=== PATIENT | female | born 1950 | race Caucasian/White ===

== ENCOUNTER 2022-02-06 15:21 | Outpatient (CLI) | payer MEDICARE, SELFPAY ==
[2022-02-06 16:15] LABS: Albumin* 4.4 g/dL (3.3-5.0); Chloride* 99 mmol/L (96-114)
[2022-02-06 16:16] LABS: Potassium* 3.9 mmol/L (3.6-5.1); Sodium* 141 mmol/L (135-149)
[2022-02-06 16:18] LABS: Bilirubin Total* 0.4 mg/dL (0.1-1.5); Carbon Dioxide* 33 mmol/L (20-32); Creatinine* 0.7 mg/dL (0.5-1.5); Estimated Glomerular Filt Rate 94 ml/min
[2022-02-06 16:19] LABS: Alanine Aminotransferase* 27 U/L (4-35); Alkaline Phosphatase* 77 U/L (40-150); Aspartate Amino Transferase* 38 U/L (12-35); Blood Urea Nitrogen* 14 mg/dL (7-30); Calcium* 9.1 mg/dL (8.4-10.6); Glucose* 129 mg/dL (60-115); Total Protein* 7.1 g/dL (6.0-8.3)
[2022-02-09 22:53] LABS: Prolactin 12.2 ng/mL (2.8-29.2)
== END 2022-02-06 15:22 | disposition home or self-care (01) ==
LOC: LAB 15:26
PROVIDERS: PCP Internal Medicine; Visit Provider Internal Medicine
DX: G43.711 Chronic migraine without aura, intractable, with status migrainosus (principal); E07.9 Disorder of thyroid, unspecified
CPT/HCPCS: 36415; 80053; 84146; 84443

== ENCOUNTER 2022-11-10 07:44 | Outpatient (CLI) | payer MEDICARE, SELFPAY | END 2022-11-10 07:45 | disposition home or self-care (01) | LOC: NFLDREF 11-11 08:48 | PROVIDERS: PCP Internal Medicine; Referring Provider Internal Medicine; Visit Provider Internal Medicine | DX: E78.5 Hyperlipidemia, unspecified (principal); M85.80 Other specified disorders of bone density and structure, unspecified site | CPT/HCPCS: 80061; 82306 ==

== ENCOUNTER 2022-12-15 08:32 | Outpatient (CLI) | payer MEDICARE, SELFPAY ==
--- NOTE | 2022-12-15 08:45 | CRLHL7_ITS ---
For Patients: As a result of the Cures Act, medical imaging exams and procedure reports are released immediately into your electronic medical record. You may view this report before your referring provider. If you have questions, please contact your health care provider. INDICATION: 72 year-old female. Follow-up a right-sided thyroid lobe nodule. TECHNIQUE: Directed thyroid ultrasound. COMPARISON: December 16, 2020. FINDINGS: The right thyroid lobe measures 5.1 x 1.5 x 2.1 cm. The left thyroid lobe measures 4.2 x 0.9 x 1.4 cm. The isthmus measures 0.2 cm. No left-sided thyroid lobe nodules. Stable solid largely isoechoic nodule in the mid right thyroid gland measuring 3.0 x 1.5 x 1.9 cm previously 3.1 x 1.9 x 1.6 cm. IMPRESSION: Stable right-sided thyroid lobe nodule. Dictated by Shay Kline MD @ 12/17/2022 8:36:45 AM (Electronically Signed)
== END 2022-12-15 08:33 | disposition home or self-care (01) ==
PROVIDERS: PCP Internal Medicine; Visit Provider Surgery
DX: E04.1 Nontoxic single thyroid nodule (principal)
CPT/HCPCS: 76536

== ENCOUNTER 2023-03-15 09:49 | Outpatient (CLI) | payer MEDICARE, SELFPAY | END 2023-03-15 09:50 | disposition home or self-care (01) | LOC: NFLDREF 03-19 15:25 | PROVIDERS: PCP Internal Medicine; Referring Provider Internal Medicine; Visit Provider Family Medicine | DX: R30.0 Dysuria (principal); N39.0 Urinary tract infection, site not specified | CPT/HCPCS: 87086; 87186 ==

== ENCOUNTER 2023-06-29 11:00 | Outpatient (RCR) | payer MEDICARE, SELFPAY ==
--- NOTE | 2022-12-22 11:21 | URNOTE ---
Request received for authorization for [employer] ([id number]). Prior authorization is not required as services are based on medical necessity and follow Medicare guidelines.
[2022-12-31 11:00] VITALS: BP 114/69; PULSE 60; RESP 16; TEMP 36.6; O2SAT 96
[2022-12-31] MEDS: [UNRECOGNIZED DRUG - OTHER] IVPB (11:36)
[2022-12-31] MEDS: EPTINEZUMAB JJMR IVPB (11:36)
[2022-12-31] MEDS: TUBING PRIMARY IVPB (11:36)
--- NOTE | 2022-12-31 11:54 | ONC.NURNOTE ---
Patient did not want to make a 3 month appointment today. Patient plans to update her MD in [place] and will decide if the current dose is working of if a new order for a double dose is needed and will call back to schedule.
[2022-12-31] MEDS: 0.9 % SODIUM CHLORIDE 250 ml IV (11:55)
[2022-12-31] MEDS: SODIUM CHLORIDE 0.9 % (FLUSH) 10 ML SYRINGE IVF (11:55)
[2022-12-31 12:13] VITALS: BP 103/63; PULSE 63; RESP 16; TEMP 37.2; O2SAT 99
--- NOTE | 2023-03-16 13:58 | ONC.NURNOTE ---
Dx: Chronic migraine without aura
[2023-03-26 08:15] VITALS: BP 118/78; PULSE 67; RESP 16; TEMP 36.1; O2SAT 96
[2023-03-26] MEDS: TUBING PRIMARY IVPB (09:14)
[2023-03-26] MEDS: EPTINEZUMAB JJMR IVPB (09:14)
[2023-03-26] MEDS: 0.9 % SODIUM CHLORIDE 250 ml IV (09:14)
[2023-03-26] MEDS: [UNRECOGNIZED DRUG - OTHER] IVPB (09:14)
[2023-03-26] MEDS: SODIUM CHLORIDE 0.9 % (FLUSH) 10 ML SYRINGE IVF (09:15)
--- NOTE | 2023-03-26 11:56 | ONC.NURNOTE ---
only received 100mg iv VYEPTI today. pharmacy will be receiving another 200mg wednesday. I will call pt when it arrives. pt cried stressed about things.
[2023-03-29] MEDS: 0.9 % SODIUM CHLORIDE 250 ml IV (14:05)
[2023-03-29 14:39] VITALS: BP 131/80; PULSE 65; RESP 16; TEMP 36.4; O2SAT 97
[2023-06-29 11:07] VITALS: BP 112/64; PULSE 73; RESP 16; TEMP 36.6; O2SAT 93
[2023-06-29] MEDS: 0.9 % SODIUM CHLORIDE 250 ml IV (11:33)
[2023-06-29] MEDS: SODIUM CHLORIDE 0.9 % (FLUSH) 10 ML SYRINGE IVF (11:33)
--- NOTE | 2023-06-29 12:15 | ONC.NURNOTE ---
Patient here for deshaun, she notes that she has a follow up appointment with her provider in three weeks. She would like to hold off on scheduling another infusion until she has this meeting. Treatment flowsheet sent to provider for this visit.
== END 2023-06-29 23:59 | disposition home or self-care (01) ==
LOC: CCIC 11:00
PROVIDERS: PCP Internal Medicine; Referring Provider Internal Medicine; Visit Provider Clinical Nurse Specialist
DX: G43.909 Migraine, unspecified, not intractable, without status migrainosus (principal)
CPT/HCPCS: 96365; J3032; J7050

== ENCOUNTER 2023-11-22 15:00 | Outpatient (RCR) | payer MEDICARE, SELFPAY ==
--- NOTE | 2023-07-05 16:37 | PT.OPEX ---
PT [place] Outpatient Eval PT [facility] Outpatient Eval Start: 06/28/23 15:42 Freq: Status: Active Protocol: Document 07/05/23 12:07 MLS (Rec: 07/05/23 16:36 MLS [id number]) E-signed By Sariah Martinez DPT Physical Therapy Outpatient Evaluation Insurance Information Recert Due Date 10/02/23 Insurance Name Medicare [employer],[facility] Medical Diagnosis R26.9 unspecified abnormalities of gait and mobility R26.89 other abnormalities of gait and mobility Treating Diagnosis LE strengthening Balance training Referring MD Hanane Dueñas MD Subjective Subjective Patient is a 73 year old female who presents to physical therapy with signs and symptoms consistent with balance problems. She states that she has had a few falls in the last year. She states that she has had 3-5 falls in the last year. She states that three of them were ice related, one was tripping over a baby gate at home, and the last she tripped on the sidewalk. She reports that she hit her head with a couple of them but no lasting effects. She reports that her current exercise program includes walking 30-45 min walking 5x/week. Significant past medical history includes right hip replacement 2014, right shoulder replacement 2020, and chronic migraines ( 15 or more days per month). She reports she has some on and off vertigo as well. She states that they have been worse the last year. She does see a headache specialist in [place], with virtual appointments every 6 weeks. Patient would like to have better core strength through attending physical therapy sessions. 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 69 years 8.1 (7.1 ? 9.0) / 70 ? 79 years 9.2 (8.2 ? 10.2) / 80 ? 99 years 11.3 ( 10.0 ? 12.7) LLE MMT: Hip flexion: R 4/5 L 4/5 Hip abduction: R 4-/5 L 4-/5 Hip extension: R 4/5 L 4/5 Knee flexion: R 4/5 L 4/5 Knee extension: R 4/5 L 4/5 TX: Access Code: [email or web address] URL: [email or web address] Date: 07/05/2023 Prepared by: Sariah Martinez Exercises - Mini Squat with Counter Support - 1 x daily - 7 x weekly - 3 sets - 10 reps - Standing March with Counter Support - 1 x daily - 7 x weekly - 3 sets - 10 reps - Standing Hip Extension with Counter Support - 1 x daily - 7 x weekly - 3 sets - 10 reps - Standing Hip Abduction with Counter Support - 1 x daily - 7 x weekly - 3 sets - 10 reps - Heel Raises with Counter Support - 1 x daily - 7 x weekly - 3 sets - 10 reps Functional Test Performed & Score 52/56 Lawrence Balance Assessment Assessment/Impression Pt is a 73 year old female who presents with concerns of balance problems. Patient also has notable objective findings including recent falls and decreased strength which are also likely contributing to the problem. Patient is a good candidate for skilled therapy to target deficits described above. Skilled PT intervention is necessary for use of therapeutic exercise manual therapy, neuromuscular re- education, gait training, and therapeutic activity. Functional impairments include difficulty with: standing, walking and ADLS. See appropriate sections of PT eval for complete list of goals and POC. D/C plan and criteria is for pt to achieve the goals as listed below or until max rehab potential is met. Pt was agreeable with plan of care and goals established. Primary Functional Limitations standing walking exercising ADLs Plan of Care Rehabilitation Potential Good Physical Therapy Goals Within 10-12 weeks: 1.Pt will demonstrate independence in performance of home exercise program with the use of video and/or handouts in order to optimize functional mobility and reduce risk for re-injury. 2.Pt will demonstrate consistent HEP compliance to ensure progress in reaching established goals during course of care. 3.Patient will be able to grocery shop for 30 minutes without a loss of balance. 4.Patient will report pain levels <2/10 with all activities in order to improve functional mobility at home, work and during functional leisure activities. 5.Patient will be able to walk up to one mile. 6.Patient will be able to bend and lift household items from the floor to shoulder height to perform ADLs without pain. 7.Pt will be able to ascend/ descend 1 flight of stairs in order to perform ADLs pain free. 8.Pt will exhibit 4 pt improvement in Lawrence Balance Outcome measure to demonstrate functional improvement and progress towards goals Coordination/Communication With Referral Source Treatment Plan/Direct Interventions Neuromuscular Re-ed, Therapeutic Activities, Therapeutic Exercises Patient Will Be Discharged From Therapy Independently Progressing Evaluation Billing Untimed Code Treatment Minutes 30 Complexity Low Certification Information Physician Comment/Change : Physician NPI Number #
--- NOTE | 2023-10-06 16:46 | PT.OPDNX ---
PT [place] Outpatient Daily Note PT [facility] Outpatient Daily Note Start: 06/28/23 15:42 Freq: Status: Active Protocol: Document 10/06/23 11:49 MLS (Rec: 10/06/23 16:46 MLS [id number]) E-signed By Sariah Martinez DPT PT [facility] Daily Progress Note Visit Information Note Type Daily Note Visit Number 10 Insurance Information Recert Due Date 10/02/23 Insurance Name Medicare B,[facility] Medical Diagnosis R26.9 unspecified abnormalities of gait and mobility R26.89 other abnormalities of gait and mobility Treating Diagnosis LE strengthening Balance training Referring MD Hanane Dueñas MD Subjective Subjective Patient is a 73 year old female who presents to physical therapy with signs and symptoms consistent with balance problems. She reports that she is feeling okay. She states that she feels a headache coming. Pain Comments Today: (headache) 2/10 on a 0-10 pain scale with 10 = extreme pain At its worst: 7/10 At its best: 0/10 Precautions Treatment Precautions/Contraindications migraines - 15 or more days per month Objective Other/Pertinent Objective GAIT/FUNCTIONAL MOBILITY Ambulates without an assistive device, no antalgic gait noted Romberg eyes open:20 sec with perturbation Romberg eyes closes: 15 sec 30 second sts: 10 5 time sts: 16 sec Age Bracket Time (sec) 60-69 yo 11.4 / 70-79 yo 12.6 / 80- 89 yo 14.8 Single leg stance- 5 seconds on each leg TUG 8 sec 13.5 seconds is cut off for norm 60 ? 69 years 8.1 (7.1 ? 9.0) / 70 ? 79 years 9.2 (8.2 ? 10.2) / 80 ? 99 years 11.3 ( 10.0 ? 12.7) LLE MMT: Hip flexion: R 4/5 L 4/5 Hip abduction: R 4-/5 L 4-/5 Hip extension: R 4/5 L 4/5 Knee flexion: R 4/5 L 4/5 Knee extension: R 4/5 L 4/5 Functional Test Performed & Score 52/56 Lawrence Balance Patient Instructed in Risks/Benefits Yes Therapeutic Exercise Therapeutic Exercise Minutes (minutes) 30 Therapeutic Exercise: To Restore Added 1.5# weights Functional Status SLR 3x10 B Heel slides 3x10 B SAQ 3x10 B, 5 sec hold Bridge 3x10, 5 sec hold w adduction squeeze LAQ 2 x10 Sidelying abduction 2x10 B Sidelying clamshell 2x10 B Not today: Counter march 3x10 Counter hip extension 3x10 Counter hip abduction 3x10 Counter HS curl 3 x 10 Access Code: [email or web address] URL: [email or web address] Date: 07/05/2023 Prepared by: Sariah Martinez Exercises - Mini Squat with Counter Support - 1 x daily - 7 x weekly - 3 sets - 10 reps - Standing March with Counter Support - 1 x daily - 7 x weekly - 3 sets - 10 reps - Standing Hip Extension with Counter Support - 1 x daily - 7 x weekly - 3 sets - 10 reps - Standing Hip Abduction with Counter Support - 1 x daily - 7 x weekly - 3 sets - 10 reps - Heel Raises with Counter Support - 1 x daily - 7 x weekly - 3 sets - 10 reps Access Code: [email or web address] URL: [email or web address] Date: 08/23/2023 Prepared by: Sariah Martinez Exercises - Supine Single Knee to Chest Stretch - 1 x daily - 7 x weekly - 3 sets - 10 reps - Supine Lower Trunk Rotation - 1 x daily - 7 x weekly - 3 sets - 10 reps - Supine Figure 4 Piriformis Stretch - 1 x daily - 7 x weekly - 3 sets - 10 reps - Supine Double Knee to Chest - 1 x daily - 7 x weekly - 3 sets - 10 reps - Supine Piriformis Stretch - 1 x daily - 7 x weekly - 3 sets - 10 reps Therapeutic Activity Therapeutic Activity Minutes (minutes) 13 Therapeutic Activities Comments B Single leg stance: core rotation x10 B Single leg stance x 10 sec x 5 B eyes closed feet together tandem stance Mini squats x 10 Slow march x 10 Treatment Minutes Timed Code Treatment Minutes 43 Total Treatment Time 43 Billing Units Therapeutic Activity Units 1 Therapeutic Exercise Units 2 Assessment/Impression Assessment/Impression Pt is a 73 year old female who presents with concerns of balance problems. Agnieszka continues to progress with her PT to improve her strength, endurance and balance. She has had some setbacks secondary to multiple migraines throughout most weeks. She is compliant with her HEP when she feels good, but unable to perform exercise program when she is having a migraine. Focused on single leg stance activities today to simulate putting one leg at a time in pants while getting dressed. Continued with 1.5# weights, as she had some mild muscle soreness following last session. Added adduction squeeze to bridging with good tolerance. Skilled PT intervention is necessary for use of therapeutic exercise manual therapy, neuromuscular re-education, gait training, and therapeutic activity. See appropriate sections of PT eval for complete list of goals and POC. D/C plan and criteria is for patient to achieve the goals as listed below or until max rehab potential is met. Plan of Care Physical Therapy Goals Within 10-12 weeks: 1.Pt will demonstrate independence in performance of home exercise program with the use of video and/or handouts in order to optimize functional mobility and reduce risk for re-injury. MET 2.Pt will demonstrate consistent HEP compliance to ensure progress in reaching established goals during course of care. MET 3.Patient will be able to grocery shop for 30 minutes without a loss of balance. 4.Patient will report pain levels <2/10 with all activities in order to improve functional mobility at home, work and during functional leisure activities. 5.Patient will be able to walk up to one mile. 6.Patient will be able to bend and lift household items from the floor to shoulder height to perform ADLs without pain. 7.Pt will be able to ascend/ descend 1 flight of stairs in order to perform ADLs pain free. MET 8.Pt will exhibit 4 pt improvement in Lawrence Balance Outcome measure to demonstrate functional improvement and progress towards goals Daily Plan of Care Continue per POC Recertification Information Initial Certification Date 07/05/23 Recertification Start Date 10/06/23 Recertification Due Date 10/02/23 Reasons to Continue Skilled Therapy Agnieszka continues to progress with her PT to improve her overall strength, endurance and balance. She continues to struggle with migraines and has had to miss several appointments secondary to these. She is compliant with her home exercise program when she feels well. She is unable to perform her exercises when she has a migraine. She would continue to benefit from PT sessions to progress her overall strength and endurance and allow her to return to previous level of activities. Rehabilitation Potential Good Continued Plan of Care and Interventions Ther exercise Ther activities Neuro re-education Provider Signature Shows Agreement With POC & Medical Necessity Physician Comment/Change Comment or Changes Physician NPI Number #
== END 2023-11-29 09:18 | disposition home or self-care (01) ==
PROVIDERS: PCP Internal Medicine; Visit Provider Internal Medicine
DX: R26.89 Other abnormalities of gait and mobility (principal); Z51.89 Encounter for other specified aftercare
CPT/HCPCS: 97110; 97161; 97530

== ENCOUNTER 2023-11-24 07:50 | Outpatient (CLI) | payer MEDICARE, SELFPAY ==
--- OUTSIDE RECORDS SUMMARY | 2023-11-24 13:54 | XMS_ITS ---
Author Organization [facility] Address [address] [place] [address] Care Team Providers Care Level Vial Curvature Gauger Name Role Phone Unavailable Unavailable Unavailable Surgery Details Not on file Complications Check Surgery Details section. Procedure Estimated Blood Loss Check Surgery Details section. Procedure Findings Check Surgery Details section. Procedure Specimens Taken Check Surgery Details section.
--- OUTSIDE RECORDS SUMMARY | 2023-11-24 13:54 | XMS_ITS | Clinical Summary ---
Author Organization [facility] Address [place], [place] [address] Care Team Providers Care Special Needs Teacher Name Role Phone Hanane Dueñas MD Primary Care Provider [phone] Allergies Active Allergy Reactions Criticality Noted Date Comments Prochlorperazine 04/29/2006 Metoclopramide Anxiety 02/25/2021 Medications Medication Sig Dispensed Refills Start Date End Date Status CELEBREX 200 MG CAP take 1 capsule (200 mg) by oral route 2 times per day as needed 0 0 10/13/2008 Active ASHPASHM-YYD-3 0.1 MG/24 HR TRANSDERM PATCH apply 1 patch by transdermal route, change every 5 days 0 0 10/13/2008 Active SIMVASTATIN 20 MG TAB take 1 tablet (20 mg) by oral route once daily in the evening 0 0 10/13/2008 Active FIORINAL 50 MG-325 MG-40 MG CAP take 1 capsule by oral route every 4 hours as needed not to exceed 6 capsules per day 0 0 10/13/2008 Active ZOFRAN 4 MG TAB take 2 tablets (8 mg) by oral route every 8 hours prn 0 0 10/13/2008 Active REGLAN 10 MG TAB take 1 tablet (10 mg) by oral route 4 times per day 30 minutes before meals and at bedtime as needed 0 0 10/13/2008 Active ACETAMINOPHEN-CODEIN E 300 MG-30 MG TAB take 1 tablet by oral route every 6 hours as needed 0 0 10/13/2008 Active DILAUDID 3 MG RECTAL SUPPOSITORY insert 1 suppository (3 mg) by rectal route every 8 hours as needed 0 0 10/13/2008 Active AMERGE 2.5 MG TAB take 1 tablet (2.5 mg) by oral route x1 dose may repeat after 4 hours 0 0 10/13/2008 Active MAXALT 10 MG TAB take 1 tablet (10 mg) by oral route x 1 dose, may repeat at 2 hour intervals; do not exceed 30 mg in 24 hours 0 0 10/13/2008 Active CALCIUM CITRATE + 315 MG-200 UNIT TAB take 3 daily 0 0 10/13/2008 Active OMEGA-3 500 MG CAP 1 daily 0 0 10/13/2008 Active FIBERCON 625 MG TAB take 3-4 daily as needed 0 0 10/13/2008 Active MAGNESIUM OXIDE 250 MG TAB 1 tab daily 0 0 10/13/2008 Active DOCUSATE SODIUM 100 MG CAP take 1 capsule (100 mg) by oral route once daily at bedtime as needed 0 0 10/13/2008 Active amitriptyline (ELAVIL) 50 mg tablet Take 1 tablet by mouth at bedtime. 0 01/30/2015 Active amitriptyline (ELAVIL) 10 mg tablet Take 2 Tablets by mouth at bedtime. 01/16/2021 Active DULoxetine (CYMBALTA) 60 mg Delayed-release capsule Take 1 Capsule by mouth once daily. 01/16/2021 Active memantine (NAMENDA) 10 mg tablet Take 10 mg by mouth. 01/16/2021 Ac tive nebivoloL (BYSTOLIC) 5 mg tab tablet Take 1 Tablet by mouth once daily. 01/16/2021 Active nebivoloL 10 mg tab Take 1 Tablet by mouth once daily. 01/16/2021 Active levETIRAcetam (KEPPRA) 250 mg tablet T1T BID PRN - ( DUNCAN UP TO 15 PER MO ) 01/16/2021 Active omeprazole (PRILOSEC) 20 mg Delayed-Release capsule Take 20 mg by mouth. 08/12/2020 Acti ve cholecalciferol (VITAMIN D3) 1,000 unit tablet Take 1,000 units by mouth. Active calcium citrate (CITRACAL) 200 mg (950 mg) tablet Take 1 Tablet by mouth. Active Emgality Pen 120 mg/mL pen 02/20/2021 Active orphenadrine (NORFLEX) 100 mg tablet TAKE 1 TABLET BY MOUTH BY MOUTH TWICE A DAY NEEDED FOR HEADACHE MAX. OF 15 TABS PER MONTH 01/16/2021 Active promethazine (PHENERGAN) 50 mg supp Insert 50 mg rectally. Active ketorolac (TORADOL) 60 mg/2 mL injection Inject 30 mg intramuscular. 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 Hypertension 11/28/2009 Chronic constipation 11/28/2009 Hx of Bowel Obstruction 11/28/2009 Overview: Isolated episode 2000, felt possibly related to adhesions (s/p MICKIE-BSO), resolved with one month of Prednisone. S/P MICKIE-BSO 11/28/2009 Overview: 1996, for fibroids S/P bilateral mastectomy 11/28/2009 Overview: 1990, done for strong FHx of breast cancer; subcutaneous bilateral mastectomies with implant reconstruction, nipples saved. Gets annual imaging. Depression 11/28/2009 Overview: Cymbalta, Amitryptiline PVC (premature ventricular contraction) 11/29/19 10 Brain mass 11/28/2009 Migraine 12/26/2008 Overview: Usually resolves with Maxalt or Zomig (both oral and intranasal). Followed by [facility], Dr. Mica Heller. Hyperplastic colonic polyp 12/26/2008 Overview: Colonoscopy 2003 Family History Medical History Relation Name Comments Cancer Brother kidney cancer Cancer-prostate Brother - GENE teste d + CHEK 2 MUtation Other Father Migraines Cancer-breast Maternal Aunt Cancer-breast Maternal Grandmother breast cancer at age 53 Cancer-breast Mother breast cancer at age 53- mets to liveer and spine Cancer-breast Other Mat GGM Other Son Migraines Relation Name Status Comments Brother Father Maternal Aunt Maternal Grandmother Mother Other Mat GGM Alive Son Social History Tobacco Use Types Packs/Day Years Used Date Smoking Tobacco: Never Smokeless Tobacco: Never Tobacco Cessation:Counseling Given: Yes Alcohol Use Standard Drinks/Week Comments No 0 (1 standard drink = 0.6 oz pur e alcohol) Social Connections Answer Date Recorded Frequency of Communication with Friends and Fami ly Not on file 04/26/2021 Financial Resource Strain Answer Date R ecorded Difficulty of Paying Living Expenses Not on file 04/26/2021 Difficulty of Paying Living Expenses Not on file 04/26/2021 Sex and Gender Information Value Date Recorded Sex Assigned at Female 10/23/2020 2:28 PM CDT Gender Identity Female 10/23/2020 2:28 PM CDT Sexual Orientation Not on file Obstetrics History Last Filed Vital Signs Vital Sign Reading Time Taken Comments Blood Pressure 126/60 04/27/2023 11:02 AM MANAGER MOBILE Pulse 58 04/27/2023 11:02 AM MANAGER MOBILE Temperature 36.1 ??C (97 ??F) 04/27/2023 11:02 AM MANAGER MOBILE Respiratory Rate 16 04/27/2023 11:02 AM MANAGER MOBILE Oxygen Saturation 99% 01/30/2015 10:32 AM CDT Inhaled Oxygen Concentration - - Weight 65.5 kg (144 lb 4.8 oz) 04/27/2023 11:02 AM MANAGER MOBILE Height 177.8 cm (5' 10) 04/27/2023 11:02 AM MANAGER MOBILE Body Mass Index 20.7 04/27/2023 11:02 AM MANAGER MOBILE Plan of Treatment Health Maintenance Due Date Last Done Comments Tdap 1963 Depression screening for age 12+ 1964 Hepatitis C screening for ag e 18-79 1970 Tetanus booster 1972 Lipids for age 45-75 1997 Zoster (shingles) series for age 50+ (1 of 2) 2002 DEXA/DXA scan for age 65+ 2017 09/19/2013 Medicare Wellness for age 65+ 2017 Pneumococcal series for age 65+ (1 of 1 - PCV) 2017 Colonoscopy through age 75 07/18/202007/18, 07/18/2010, 02/04/2004 COVID-19 vaccine series ( season) 2022 01/12/2022, 01/18/2021, 07/09/2020, Additional history exists Influenza for age 65+ 12/26/2023 BMI (ht and wt on same day) for age 18+ 04/27/2024 04/27/2023, 04/14/2022 Mammogram for age 45-75 04/27/2024 04/27/19, 04/14/2022, 03/05/2021 Procedures Procedure Name Priority Date/Time Associated Diagnosis Comments XR MAMMO ALIE BILAT SCREEN IMPLANT Routine 04/27/2023 10:46 AM MANAGER MOBILE Visit for screening mammogram XR DXA BONE DENSITY 2 SITES AXIAL Routine 09/19/2013 3:51 PM CDT Osteopenia SCAN-COLONOSCOPY 02/04/2004 12:0 0 AM CDT from Last 3 Months or Most Recently Relevant to Health Maintenance Results * XR MAMMO ALIE BILAT SCREEN IMPLANT (04/27/2023 10:46 AM MANAGER MOBILE) Anatomical Region Laterality Modality BREASTS, Breast Left, Breast Right Bilateral Mammography Impressions 04/27/2023 11:04 AM MANAGER MOBILE ??There is no radiographic evidence for malignancy. ??Recommend clinical follow up. MAMMOGRAM ASSESSMENT: ??ACR 2 Benign PATIENTS: You will also receive a letter with your examination results in an easy to read format. ??If you have questions about your results, please contact your referring provider. Narrative 04/27/2023 11:04 AM MANAGER MOBILE For Patients: As a result of the Century Cures Act, medical imaging exams and procedure reports are released immediately into your electronic medical record. You may view this report before your referring provider. If you have questions, please contact your health care provider. XR MAMMO ALIE BILAT SCREEN IMPLANT [[id number]] CLINICAL HISTORY: ??This is an asymptomatic 72 y.o. patient. INDICATION FOR EXAM: Mammogram Screening. TECHNIQUE: CC & MLO views were obtained. Implant displacement views were obtained. This study was evaluated with the assistance of Computer-Aided Detection. Breast Tomosynthesis was used in interpretation. COMPARISON FILMS: Yes 04/14/22 [facility] 03/05/21 [facility] FINDINGS: ??The breasts are almost entirely fatty. ??No suspicious masses or microcalcifications. Changes of bilateral nipple sparing mastectomies. ?? There are breast implant(s) present. Hanane Dueñas MD MAMMO * XR DXA BONE DENSITY 2 SITES (09/19/2013 3:51 PM CDT) Anatomical Region Laterality Modality Spine, HIPS, HIPL, HIPR Other Narrative 09/21/2013 9:32 AM CDT Please see scanned document for results of this study. Procedure Note Debora Rios - 09/21/2013 Please see scanned document for results of this study. Kevin Ventura MD DEXA * SCAN-COLONOSCOPY (02/04/2004 12:00 AM CDT) Narrative Procedure Note Scanner - 02/04/2004 12:00 AM CDT Scanner OTHER from Last 3 Months or Most Recently Relevant to Health Maintenance Advance Directives * Full Code (Latest Code Status on File) Date Activated Date Inactivated Comments 11/28/2009 8:43 PM 11/30/2009 4:31 PM Care Teams Special Needs Teacher Relationship Specialty Start Date End Date Hanane Dueñas MD [address] [place] [address] PCP - General Internal Medicine 04/23/15
--- OUTSIDE RECORDS SUMMARY | 2023-11-24 13:54 | XMS_ITS | Clinical Summary ---
Author Organization [facility] Address [address] [place] [address] Care Team Providers Care Supervisor Finishing Department Name Role Phone Hanane Dueñas MD Primary Care Provider Allergies Active Allergy Reactions Criticality Noted Date Comments Prochlorperazine Anxiety Low 12/29/2011 Metoclopramide 09/15/2017 High anxiety Medications Medication Sig Dispensed Refills Start Date End Date Status simvastatin (ZOCOR) 20 MG tablet Take 1 tablet by mouth At Bedtime. Active LORazepam (ATIVAN) 1 MG tablet Take 1 mg by mouth every 6 hours as needed. Active ondansetron (ZOFRAN ODT) 8 MG disintegrating tablet Take 1 tablet by mouth every 8 hours as needed. Active Promethazine HCl (PHENERGAN) 50 MG/ML SOLN Inject 50 mg as directed every 6 hours as needed Every 6-8 hours Active memantine (NAMENDA) 10 MG tabletIndications:Migr elie Take 10 mg by mouth 2 times daily Active DULoxetine (CYMBALTA) 60 MG EC capsule Take 60 mg by mouth daily Active Nebivolol HCl (BYSTOLIC PO) Take 15 mg by mouth daily Active Ketorolac Tromethamine (TORADOL IM) Inject 30 mg into the muscle 2 times daily as needed LIMIT: 2 doses per day or 3 doses per week, no more than 10 doses per month. Active promethazine (PHENERGAN) [address] 50 mg rectally every 6 hours as needed for nausea Active LORazepam (ATIVAN) 2 MG/ML injection Inject 1 mg into the vein every 12 hours as needed for anxiety Active LevETIRAcetam (KEPPRA PO) Take 250 mg by mouth every 12 hours as needed LIMITS: 15 doses per month or 3 doses per week Active VITAMIN D, CHOLECALCIFEROL, PO Take 1,000 Units by mouth daily Active calcium citrate (CALCITRATE) 950 MG tablet Take 1 tablet by mouth daily Active Docusate Sodium (COLACE PO) Take 100 mg by mouth daily Active calcium polycarbophil (FIBERCON) 625 MG tablet Take 2 tablets by mouth daily Active RIBOFLAVIN PO Take 1 tablet by mouth daily Active UNABLE TO FIND CoQ 10 with EB-H4 daily Active amitriptyline (ELAVIL) 10 MG tablet Take 70 mg by mouth At Bedtime Active orphenadrine (NORFLEX) 100 MG 12 hr tablet Take 100 mg by mouth 2 times daily as needed for other (migraine DUNCAN) Active acetaminophen (TYLENOL) 325 MG tabletIndications:Stat us post total replacement of right hip Take 3 tablets (975 mg) by mouth every 8 hours 200 tablet 10/13/2017 Active senna-docusate (SENOKOT-S;PERICOLACE) 8.6-50 MG per tabletIndications:Stat us post total replacement of right hip Take 1 tablet by mouth 2 times daily 60 tablet 10/13/2017 Active traMADol (ULTRAM) 50 MG tabletIndications:Stat us post total replacement of right hip Take 1 tablet (50 mg) by mouth every 6 hours as needed for moderate pain 30 tablet 10/13/2017 Active celecoxib (CELEBREX) 200 MG capsuleIndications:Sta tus post total replacement of right hip Take 1 capsule (200 mg) by mouth daily 30 capsule 1 10/13/2017 Active Active Problems Problem Noted Date Diagnosed Date S/P total hip arthroplasty 10/11/2017 Resolved Problems Problem Noted Date Diagnosed Date Resolved Date Muscle weakness (generalized) 01/13/2012 03/16/2012 Dyspareunia 01/13/2012 03/16/2012 Social History Tobacco Use Types Packs/Day Years Used Date Smoking Tobacco: Never Smokeless Tobacco: Never Alcohol Use Standard Drinks/Week Comments No 0 (1 standard drink = 0.6 oz pur e alcohol) Adolescent Education Answer Date Record ed Getting School Help Needed Not on file 01/31 Sex and Gender Information Value Date Recorded Sex Assigned at Not on file Gender Identity Not on file Sexual Orientation Not on file Last Filed Vital Signs Vital Sign Reading Time Taken Comments Blood Pressure 111/50 10/13/2017 8:26 AM CDT Pulse 65 10/12/2017 12:52 AM CDT Temperature 36.9 ??C (98.4 ??F) 10/13/2017 8:26 AM CD T Respiratory Rate 16 10/13/2017 9:23 AM CDT Oxygen Saturation 94% 10/13/2017 8:26 AM CDT Inhaled Oxygen Concentration - - Weight 61.2 kg (135 lb) 10/11/2017 7:44 AM CDT Height 177.8 cm (5' 10) 10/11/2017 7:44 AM CDT Body Mass Index 19.37 10/11/2017 7:44 AM CDT Plan of Treatment Health Maintenance Due Date Last Done Comments ADVANCE CARE PLANNING 1950 ANNUAL REVIEW OF HM ORDERS 1952 CT COLONOGRAPHY 1952 DEXA 1952 FIT 1952 FLEX SIG 1952 LIPID 1952 sDNA (Cologuard) 1952 COLONOSCOPY 1962 COLORECTAL CANCER SCREENING 1962 HEPATITIS C SCREENING 1970 RSV VACCINE ( & 60+) (1 - 1-dose 60+ series) 2012 FALL RISK ASSESSMENT 2017 Pneumococcal Vaccine: 65+ Years (2 of 2 - PPSV23 or PCV20) 05/31/2019 05/31/2018 GLUCOSE 10/13/2020 10/13/2017, 10/12/2017 COVID-19 Vaccine (2022- season) 2022 01/12/2022, 07/31/2021, 01/18/2021, Additional history exists PHQ-2 (once per calendar year) 2023 INFLUENZA VACCINE (#1) 2023 , 02/20/2021, 02/01/2020, Additional history exists DTAP/TDAP/TD IMMUNIZATION (2 - Td or Tdap) 05/02/2025 05/02/2015 ZOSTER IMMUNIZATION Completed 06/26/2019, 9 HPV IMMUNIZATION Aged Out No longer e ligible based on patient's age to complete this topic IPV IMMUNIZATION Aged Out No longer e ligible based on patient's age to complete this topic MENINGITIS IMMUNIZATION Aged Out No l onger eligible based on patient's age to complete this topic RSV MONOCLONAL ANTIBODY Aged Out No l onger eligible based on patient's age to complete this topic Medical Devices Implanted Type Area Skates Operator Device Identifier Shelf Expiration Date Model / Serial / Lot Imp Scr Zim 6.5x30mm Acet Cup Self Tap [id number] Implanted:Qty: 1 on 10/11/2017 by Lb Kumar MD at [facility] Metallic Hardware/Anc hor Right: Hip [employer] 06/24/20276250-0 65-30 / / [id number] Imp Liner Acetabulum Zim Xlpe [id number] Implanted:Qty: 1 on 10/11/2017 by Lb Kumar MD at [facility] Total Joint Component/In sert Right: Hip [employer] 05/26/20226305-0 56-36 / / [id number] Imp Shell Acetabulum Zim 56mm [id number] Implanted:Qty: 1 on 10/11/2017 by Lb Kumar MD at [facility] Total Joint Component/In sert Right: Hip [employer] 07/25/2027-6200-0 56-22 / / [id number] Imp Stem Femoral Zim Size 6 [id number] Implanted:Qty: 1 on 10/11/2017 by Lb Kumar MD at [facility] Total Joint Component/In sert Right: Hip [employer] 09/23/2026-7711-0 06-00 / / [id number] Imp Head Femoral Zim Versys 36mm +0 [id number] Implanted:Qty: 1 on 10/11/2017 by Lb Kumar MD at [facility] Total Joint Component/In sert Right: Hip [employer] 08/23/2025-8018-0 36-02 / / [id number] Procedures Procedure Name Priority Date/Time Associated Diagnosis Comments GLUCOSE Routine 10/13/2017 7:35 AM CDT Status post total replacement of right hip from Last 3 Months or Most Recently Relevant to Health Maintenance Results * Glucose (10/13/2017 7:35 AM CDT) Glucose 90 70 - 99 mg/dL 10/13/2017 8:10 AM CDT [facility] Blood specimen (specimen) 10/13/2017 7:35 AM CDT 10/13/2017 7:36 AM CDT Geovanny Arango MD LAB - BLOOD ORDERABL ES [facility] [address] [place] [address], [facility] [phone] from Last 3 Months or Most Recently Relevant to Health Maintenance Advance Directives For more information, please contact: [phone] * Full Code (Latest Code Status on File) Date Activated Date Inactivated Comments 10/11/2017 11:59 AM 10/13/2017 3:10 PM Care Teams Supervisor Finishing Department Relationship Specialty Start Date End Date Hanane Dueñas MD [facility] [address] [place] [address] PCP - General Internal Medicine 12/19/15
--- OUTSIDE RECORDS SUMMARY | 2023-11-24 13:54 | XMS_ITS | Referral Summary ---
Author Organization [facility] Address [address] [place] [address] Care Team Providers Care Pilot Control Operator Name Role Phone Unavailable Primary Care Provider Unavailabl e Source Comments Patient records contain information from all sites at [facility]. For routine questions regarding patient records, call [phone] during business hours, M-F 8:00 AM - 5:00 PM Central Time. Record requests for emergency care only can be directed to [phone] at any time.[facility] Allergies Active Allergy Reactions Criticality Noted Date Comments Meperidine Nausea And Vomiting Medium 09/03/2011 Metoclopramide Anxiety 09/15/2017 High anxiety Prochlorperazine Anxiety 08/25/2011 ANXIETY Medications Medication Sig Dispensed Refills Start Date End Date Status naratriptan (AMERGE) 2.5 mg tablet Take 2.5 mg by mouth as needed. migraine 10/13/2008 Active amitriptyline (ELAVIL) 10 mg tablet Take 20 mg by mouth. 70 mg daily 09/08/2017 Active amitriptyline (ELAVIL) 50 mg tablet Take 50 mg by mouth. 09/08/2017 Acti ve calcium citrate (CALCITRATE) 950 mg (200 mg calcium) tablet Take 1 tablet by mouth. Active polycarbophil (FIBERCON) 625 mg tablet Take 2 tablets by mouth daily. Active celecoxib (CeleBREX) 200 mg capsule as needed. 10/13/2017 Active DULoxetine (CYMBALTA) [address] capsule Take 60 mg by mouth. 09/08/2017 Acti ve docusate sodium (COLACE) 100 mg capsule Take 100 mg by mouth. Act rosalba ketorolac (TORADOL) 30 mg/mL (1 mL) injection Inject 30 mg intramuscularly as needed. migraines 08/26/2017 Active levETIRAcetam (KEPPRA) 250 mg tablet 250 mg as needed. migraine 10/11/2017 Active LORazepam (ATIVAN) 1 mg tablet Take 1 mg by mouth as needed. 01/30/2015 Active LORazepam (LORazepam) 2 mg/mL injection Infuse 1 mg into a venous catheter. Active memantine (NAMENDA) 10 mg tablet Take 10 mg by mouth daily. Active nebivolol (BYSTOLIC) 5 mg tablet Take 15 mg by mouth daily. 09/08/2017 Active omega-3 fatty acids 500 mg capsule Take by mouth daily. 10/13/2008 Active ondansetron (ZOFRAN) 8 mg tablet Take 8 mg by mouth as needed. migraines 09/08/2017 Active orphenadrine (NORFLEX) 100 mg ER tablet Take 100 mg by mouth as needed. migraines Active promethazine (PHENERGAN) 25 mg suppository Insert 25 mg into the rectum as needed. 09/08/2017 Active promethazine (PHENERGAN) 50 mg/mL injection Inject 50 mg intramuscularly as needed. Active UNABLE TO FIND daily. CoQ 10 with EB-H4 Active simvastatin (ZOCOR) 20 mg tablet 20 mg daily. 10/22/2017 Active cholecalciferol (cholecalciferol) 1,000 Unit tablet Take 1,000 Units by mouth. Active Emgality Pen 120 mg/mL injection every 30 (thirty) days. 12/02/2019 Active omeprazole (PriLOSEC) [address] capsule Take 20 mg by mouth daily. 08/12/2020 Active eptinezumab-jjmr (VYEPTI) 100 mg/mL injection Infuse into a venous catheter. 12/18/2022 Active zavegepant 10 mg/actuation spray,non-aerosol Administer 10 mg into nostril(s). 11/24/2022 Active dihydroergotamine (Trudhesa) 0.725 mg/pump act. (4 mg/mL) spray,non-aerosol nasal spray Administer 1 spray into nostril(s). 12/11/2022 Active Nurtec ODT 75 mg disintegrating tablet 10/07/2022 Active valproic acid (DEPAKENE) 250 mg capsule Take 1 tablet twice a day as needed for headache. Limit to 2 days/week, 16 capsules/month. 02/02/2023 Active metaxalone (SKELAXIN) 800 mg tablet Take 1 tablet by mouth 2 (two) times a day as needed. 07/03/2022 Active divalproex sodium (DEPAKOTE ORAL) 01/25/2023 Active digital therapeutic,MACHO device ([employer] Digital Krissy, migraine,) misc 1 each by not applicable route. 02/02/2022 Active polyethylene glycol (MIRALAX) 17 gram/dose oral powder Take 17 g by mouth. Dissolve each 17 g dose in 240 mL (8 ounces) of beverage. Active Social History Tobacco Use Types Packs/Day Years Used Date Smoking Tobacco: Never Smokeless Tobacco: Never Social Connection and Isolat ion Panel [NHANES] Answer Date Recorded In a typical week, how many times do you talk on the phone with family, friends, or neighbors? Twice a week 09/07/2020 How often do you get togethe r with friends or relatives? Twice a week 09/07/2020 How often do you attend chur ch or alevism services? More than 4 times per year 09/07/2020 Do you belong to any clubs o r organizations such as christian groups, unions, fraternal or athletic groups, or school groups? Yes 09/07/2020 How often do you attend meet ings of the clubs or organizations you belong to? More than 4 times per year 09/07/2020 Are you , , di vorced, , never , or living with a partner? 09/07/2020 AUDIT-C Answer Date Recorded Q1: How often do you have a drink containing alc ohol? Never 09/07/2020 Average Number of Drinks Not on file 021 Frequency of Binge Drinking Not on file 08/24 Overall Financial Resource Strain (CARDIA) Answe r Date Recorded How hard is it for you to pa y for the very basics like food, housing, medical care, and heating? Not hard at all 02/09/2023 [facility] - Occupational Stress Questionnaire Answer Date Recorded Do you feel stress - tense, restless, nervous, or anxious, or unable to sleep at night because your mind is troubled all the time - these days? Only a little 09/07/2020 Exercise Vital Sign Answer Date Recorde d On average, how many days pe r week do you engage in moderate to strenuous exercise (like a brisk walk)? 5 days 02/09/2023 On average, how many minutes do you engage in exercise at this level? 30 min 02/09/2023 Hunger Vital Sign Answer Date Recorded Within the past 12 months, y ou worried that your food would run out before you got the money to buy more. Never true 02/10/20 Within the past 12 months, t he food you bought just didn't last and you didn't have money to get more. Never true 02/09/2023 PRAPARE - Transportation Answer Date Re corded In the past 12 months, has l ack of transportation kept you from medical appointments or from getting medications? No 01/24 In the past 12 months, has l ack of transportation kept you from meetings, work, or from getting things needed for daily living? No 02/09/2023 Nutrition Answer Date Recorded Nutrition: EVOO Fat Source Yes 09/07 On average, how many serving s of fruits and vegetables do you eat per day (serving size is equal to 1 cup or approximately the size of a tennis ball)? 2-3 09/07/2020 Dental Answer Date Recorded Dental: Regular Dentist Yes 05/03/19 Employment Answer Date Recorded Employment status Retired 02/09/2023 Housing Stability Answer Date Recorded What is your living situation today? I have a [facility] place to live 02/09/2023 Education Answer Date Recorded What is the highest level of school you have completed or the highest degree you have received? Bachelor's degree (e.g., BA, AB, BS) 09/07/2020 Sex and Gender Information Value Date Recorded Sex Assigned at Female 03/05/2021 8:25 PM BOTTOM FILLER Gender Identity Female 09/07/2020 7:02 AM CDT Sexual Orientation Straight 09/07/2020 7: 02 AM CDT Plan of Treatment Upcoming Encounters Date Type Department Care Team (Late st Contact Info) Description 11/30/2023 3:00 PM CDT Office Visit Department of Dermatology in [address] [place] [address] Alexis Fink M.D. [address] [place] [address] Discharge Disposition: Home or Self Care Medical Devices Implanted Type Area Experimental Worker Device Identifier Shelf Expiration Date Model / Serial / Lot Breast Implant Breast Implant Breast Hip Implant Hip Implant Hip Shoulder Implant Shoulder Implant Shoulder
--- OUTSIDE RECORDS SUMMARY | 2023-11-24 13:54 | XMS_ITS | Clinical Summary ---
Author Organization [facility] Address [address] [place] [address] Care Team Providers Care Heel Blacker Name Role Phone Unavailable Primary Care Provider Unavailabl e Source Comments Patient records contain information from all sites at [facility]. For routine questions regarding patient records, call [phone] during business hours, M-F 8:00 AM - 5:00 PM Central Time. Record requests for emergency care only can be directed to [phone] at any time.[facility] Allergies Active Allergy Reactions Criticality Noted Date [...] (DEPAKOTE ORAL) 01/25/2023 Active digital therapeutic,MACHO device ([employer] Digital Krissy, migraine,) misc 1 each by [...] often do you attend chur ch or yazdanism services? More than 4 times per year 09/07/2020 Do you belong to any clubs o r organizations such as yazidi groups, unions, fraternal or athletic groups, or [...] and heating? Not hard at all 02/09/2023 [facility] - Occupational [...] your living situation today? I have a [facility] place to live 02/09/2023 Education Answer Date Recorded What is the highest level of school you have completed or the highest degree you have received? Bachelor's degree (e.g., BA, AB, BS) 09/07/2020 Sex and Gender Information Value Date Recorded Sex Assigned at Female 03/05/2021 8:25 PM SUGARCANE PLANTER Gender Identity Female 09/07/2020 7:02 AM CDT Sexual Orientation Straight 09/07/2020 7: 02 AM CDT Plan of Treatment Upcoming Encounters Date Type Department Care Team (Late st Contact Info) Description 11/30/2023 3:00 PM CDT Office Visit Department of Dermatology in [address] [place] [address] Alexis Fink M.D. [address] [place] [address] Discharge Disposition: Home or Self Care Health Maintenance Due Date Last Done Comments Bone Density Scan (Osteoporo sis Screen) 1952 CT Colonography 1952 Cologuard 1950 Colonoscopy 1950 Colorectal Cancer Screening 1950 FIT 1952 Hepatitis C Screening 1950 Mammogram 1950 Pneumococcal vaccine (65+ ye ars) (2 of 2 - PPSV23 or PCV20) 05/31/2019 05/31/2018 Fasting Glucose for Diabetes Screening 10/13/2020 10/13/2017, 10/12/2017 Depression Screening (Annual PHQ-2) 04/26/2023 Fall Risk Screen (Annual) 04/26/2023 COVID-19 Vaccine (7 - 2022-2 4 season) 2023 07/17/2023, 01/12/2022, 07/31/2021, Additional history exists Influenza Vaccine (#1) 2024 , 03/04/2022, 02/20/2021, Additional history exists DTaP,Tdap,and Td Vaccines (2 - Td or Tdap) 05/02/2025 05/02/2015 Zoster Vaccines Completed 06/26/2019, 02/27/2019 Medical Devices Implanted Type Area Wafer Machine Operator Device Identifier Shelf Expiration Date Model / Serial / Lot Breast Implant Breast Implant Breast Hip Implant Hip Implant Hip Shoulder Implant Shoulder Implant Shoulder
--- OUTSIDE RECORDS SUMMARY | 2023-11-24 13:54 | XMS_ITS | Referral Summary ---
Author Organization [facility] Address [address] [place] [address] Care Team Providers Care Emergency Services Professional Name Role Phone Hanane Dueñas MD Primary [...] 10/11/2017 7:44 AM CDT Plan of Treatment Not on file Medical Devices Implanted Type Area General Foundry Worker Device Identifier Shelf Expiration Date Model / Serial / Lot Imp Scr Zim 6.5x30mm Acet Cup Self Tap [id number] Implanted:Qty: 1 on 10/11/2017 by Lb Kumar MD at [facility] Metallic Hardware/Anc hor Right: Hip [employer] 06/24/2027-6250-0 65-30 / / [id number] Imp Liner Acetabulum Zim Xlpe [id number] Implanted:Qty: 1 on 10/11/2017 by Lb Kumar MD at [facility] Total Joint Component/In sert Right: Hip [employer] 05/26/2022-6305-0 56-36 / / [id number] Imp Shell Acetabulum Zim 56mm [id number] Implanted:Qty: 1 on 10/11/2017 by Lb Kumar MD at [facility] Total Joint Component/In sert Right: Hip [employer] 07/25/2027-6200-0 56-22 / / [id number] Imp Stem Femoral Zim Size 6 [id number] Implanted:Qty: 1 on 10/11/2017 by Lb Kumar MD at [facility] Total Joint Component/In sert Right: Hip [employer] 09/23/2026-7711-0 06- / [id number] Imp Head Femoral Zim Versys 36mm +0 [id number] Implanted:Qty: 1 on 10/11/2017 by Lb Kuamr MD at [facility] Total Joint Component/In sert Right: Hip [employer] 08/23/2025-8018-0 36- / / [id number] Procedures Procedure Name Priority Date/Time Associated Diagnosis Comments GLUCOSE Routine 10/13/2017 7:35 AM CDT Status post total replacement of right hip from Last 3 Months or Most Recently Relevant to Health Maintenance Results * Glucose (10/13/2017 7:35 AM CDT) Glucose 90 70 - 99 mg/dL 10/13/2017 8:10 AM CDT [facility] Blood specimen (specimen) 10/13/2017 7:35 AM CDT 10/13/2017 7:36 AM CDT Geovanny Arango MD LAB - BLOOD ORDERABL ES [facility] [address] [place], [place] [address] [phone] from Last 3 Months or Most Recently Relevant to Health Maintenance Advance Directives For more information, please contact: [phone] * Full Code (Latest Code Status on File) Date Activated Date Inactivated Comments 10/11/2017 11:59 AM 10/13/2017 3:10 PM Care Teams Emergency Services Professional Relationship Specialty Start Date End Date Hanane Dueñas MD [address] [address] PCP - General Internal Medicine 12/19/15
== END 2023-11-24 07:51 | disposition home or self-care (01) ==
LOC: NFLDREF 13:53
PROVIDERS: PCP Internal Medicine; Referring Provider Internal Medicine; Visit Provider Internal Medicine
DX: E78.5 Hyperlipidemia, unspecified (principal)
CPT/HCPCS: 80061

== ENCOUNTER 2024-11-28 07:49 | Outpatient (CLI) | payer MEDICARE, SELFPAY | END 2024-11-28 07:50 | disposition home or self-care (01) | LOC: NFLDREF 11-29 18:05 | PROVIDERS: PCP Internal Medicine; Referring Provider Internal Medicine; Visit Provider Internal Medicine | DX: E78.5 Hyperlipidemia, unspecified (principal); Z13.1 Encounter for screening for diabetes mellitus | CPT/HCPCS: 80061; 82947 ==

== ENCOUNTER 2024-12-20 09:00 | Outpatient (RCR) | payer MEDICARE, SELFPAY ==
--- NOTE | 2024-07-31 13:36 | PT.OPEX ---
PT [place] Outpatient Eval PT [facility] Outpatient Eval Start: 07/31/24 07:13 Freq: Status: Active Protocol: Document 07/31/24 07:16 ATILIO (Rec: 07/31/24 10:50 ATILIO [id number]) E-signed By Tl Smith PT Physical Therapy Outpatient Evaluation Insurance Information Insurance Name Medicare B,[employer], Other; See Comments Insurance Information/Comments AARP Medical Diagnosis Chronic Neck Pain Treating Diagnosis Decreased neck mobility Migraines Postural dysfunction Referring MD Leana Subjective Preferred Name Agnieszka Comfort Pt. 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 She gets migraines 20 days a month now despite the many medications she is on. She rates her pain at a 2-6/10 on the pain scale and she at least doesn't get sick with high pain levels anymore like she did years ago. She has a history of right shoulder TSA, right hip VICTORIANO, and left shoulder OA. She and her MD discussed trying PT to see if skilled therapy to neck and head could have any positive effect on her migraine headaches. She has trouble with pushing any stretching or strengthening exercises, being very sensitive with her migraines. She does walk for exercise 4 times a week but isn't doing any specific strengthening currently, but knows that she could benefit from more overall strength. PMH also includes depression and osteopenia. Pain Comments 2-6 Date of Last Physician Visit 06/26/24 Current Work Status Retired Objective Other/Pertinent Objective Posture: Forward head with dowager hump and flattened T- spine CROM: flexion 75%: extension 50%; side bending 15%; right rotation 40%; left rotation 50 % Palpation: TP and hypertonus of upper trap, levator scapula , occipital/suboccipital muscles. Segmental hypomobility of C-spine. Shoulder AROM: WFL with history of right TSA and left GHJ OA limitations. Strength: scapular stabilizer, cuff, deltoid, deep neck flexor weakness Functional Test Performed & Score NDI: Assessment Assessment/Impression 74 year old female who presents in therapy today with primary complaint of chronic migraines with increased frequency along with decreased neck mobility and neck pain/ tightness. Aggravating factors for neck pain include turning her head for ADL's along with too much exercise. Alleviating factors include multiple medications for migraines and rest, heat. Objectively, she demonstrates; forward head posture with dowager hump and flattened T- spine; significant loss of CROM especially into side bending and rotations; hypertonus/TP's of upper trap, levator scapula, occipital/ suboccipital muscles; postural weakness/deconditioning of scapular stabilizers, deep neck flexors, and posterior rotator cuff areas; and general deconditioning due to chronic migraines with poor tolerance to moderate levels of exercise. She would benefit from skilled therapy working on muscle spasms/TP reduction along with progressive strength and conditioning. Primary Functional Limitations turning head, sleeping, exercising Plan of Care Rehabilitation Potential Good Physical Therapy Goals 1. Pt. will be indep. with HEP for self maintenance in 8 weeks. 2. Pt. will be able to turn head for safe driving with less difficulty in 8 weeks. 3. Pt. will be able to perform regular postural exercises without a migraine flare in 12 weeks. 4. Pt. will report improvement in her neck mobility with less pain noted during ADL's in 12 weeks. Coordination/Communication With Referral Source Treatment Plan/Direct Interventions Dry Needling,Joint Mobilization,Manual Therapy, Self-Care/Home Management, Therapeutic Exercises Frequency/Duration 1-2 times a week for 8 weeks. Patient Will Be Discharged From Therapy Independent w/HEP, Independently Progressing Evaluation Billing Complexity Low Certification Information Initial Certification Date 07/31/24 Ending Certification Date 10/29/24 Provider Signature Required Yes Provider Signature Shows Agreement With POC & Medical Necessity Physician NPI Number Write NPI# Here Physician Comment/Change : Physician Signature & Date Requested Please Sign/Date Here
== END 2025-01-22 15:59 | disposition home or self-care (01) ==
PROVIDERS: PCP Internal Medicine; Visit Provider Internal Medicine
DX: M54.2 Cervicalgia (principal); G89.29 Other chronic pain; M76.892 Other specified enthesopathies of left lower limb, excluding foot; M16.12 Unilateral primary osteoarthritis, left hip; G43.909 Migraine, unspecified, not intractable, without status migrainosus; Z51.89 Encounter for other specified aftercare
CPT/HCPCS: 97110; 97112; 97140; 97161

== ENCOUNTER 2025-01-18 13:00 | Outpatient (RCR) | payer MEDICARE, SELFPAY ==
--- NOTE | 2024-09-27 11:50 | PT.OPEX ---
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 Subchondral sclerosis. Osteophyte formation. Subchondral cystic change even. No acute fractures or avulsions. No signs of AVN. For comparison, contralateral right hip shows VICTORIANO implants in appropriate, stable position. No evidence of loosening or failure. Referring MD Dr. Nash Subjective Subjective Patient is a 74 year old female who presents to physical therapy with signs and symptoms consistent with left hip abductor tendonitis. She states that she was doing well with her exercises and then they got harder with her left leg to the point where she was sore after. She reports that she quit doing them. She saw Dr. Nash a couple months ago. She reports that she did have an xray and she does have a bone spur. She states that if she rotates her hip, it is worse. She has not gotten a cortisone shot. She does get some left SI pain as well. Aggravating factors include: rotation, gardening, stair climbing. Alleviating factors include: Celebrex (which she can't take), heat . Significant past medical history includes migraines 4 days per week, R hip and R shoulder. Patient would like to achieve less pain and return to pain free ADLS through physical therapy sessions. Pain Comments Today: 1/10 on a 0-10 pain scale with 10 = extreme pain At its worst: 3-4/10 At its best: 0/10 Current Work Status Retired Precautions Weight Bearing Full Weight Bearing Status Therapy Limitations/ Not Limited Systems Review Objective Other/Pertinent KNEE ROM Objective Grossly tested WNL B HIP ROM Flexion: R 90 L 90 Internal Rotation: R 20 L 5 with pain External Rotation: R 35 L 20 with pain Abduction: R 30 L 25 LLE MMT: Hip flexion: R 4/5 L 4/5 Hip abduction: R 4/5 L 4/5 Hip extension: R 4/5 L 4/5 Knee flexion: R 4+/5 L 4+/5 Knee extension: R 4+/5 L 4+/5 SPECIAL TEST -Sanders Compression: pos on L -Hip quadrant test: neg B -JW: neg B -FADIR neg B -SCOUR: neg B -Trochanteric Bursitis Test: Pos on L -Straight Leg Test: Neg B JOINT MOBILITY/PALPATION Mild tenderness to greater troch, severe tenderness to hip abductor insertion TX: Access Code: [email or web address] URL: [email or web address] Date: 09/27/2024 Prepared by: Sariah Martinez Exercises - Supine Lower Trunk Rotation - 1 x daily - 7 x weekly - 3 sets - 10 reps - Supine Figure 4 Piriformis Stretch - 1 x daily - 7 x weekly - 3 sets - 10 reps - Seated Piriformis Stretch - 1 x daily - 7 x weekly - 3 sets - 10 reps - Seated Hamstring Stretch - 1 x daily - 7 x weekly - 3 sets - 10 reps - Supine ITB Stretch - 1 x daily - 7 x weekly - 3 sets - 10 reps Functional Test 54/80 Performed & Score A score increase of 6 points shows a significant improvement in lower extremity function. Assessment Assessment/ Pt is a 74 year old female who presents with concerns Impression of left hip abductor tendonitis. Patient also has notable objective findings including limited ROM, tenderness to palpation, and decreased strength which are also likely contributing to the problem. Patient is a good candidate for skilled therapy to target deficits described above. Skilled PT intervention is necessary for use of therapeutic exercise manual therapy, neuromuscular re-education, gait training, and therapeutic activity. Functional impairments include difficulty with: standing, walking, exercising and ADLs . See appropriate sections of PT eval for complete list of goals and POC. D/C plan and criteria is for pt to achieve the goals as listed below or until max rehab potential is met. Pt was agreeable with plan of care and goals established. Primary Functional standing Limitations walking exercising ADLS Plan of Care Rehabilitation Good Potential Physical Therapy Within 10-12 weeks: Goals 1.Pt will demonstrate independence in performance of home exercise program with the use of video and/or handouts in order to optimize functional mobility and reduce risk for re-injury. 2.Pt will demonstrate consistent HEP compliance to ensure progress in reaching established goals during course of care. 3.Patient will be able to do yard work for 45 minutes without pain. 4.Patient will report pain levels <2/10 with all activities in order to improve functional mobility at home, work and during functional leisure activities. 5.Patient is able to sleep without waking more than one time due to pain in a 6-8 hour time frame. 6.Patient will be able to walk up to one mile without pain. 7.Patient will be able to bend and lift household items from the floor to shoulder height to perform ADLs without pain. 8.Pt will be able to ascend/descend 1 flight of stairs in order to perform ADLs pain free. 9.Pt will exhibit 5 pt improvement in Lower Extremity Functional Test to demonstrate functional improvement and progress towards goals Coordination/ Referral Source Communication With Treatment Plan/ Gait Training,Joint Mobilization,Manual Therapy, Direct Interventions Neuromuscular Re-ed,Therapeutic Activities,Therapeutic Exercises,Ultrasound Patient Will Be Independently Progressing Discharged From Therapy Evaluation Billing Untimed Code 30 Treatment Minutes Complexity Low Certification Information Provider Signature Yes Required Provider Signature POC & Medical Necessity Shows Agreement With Physician NPI Number Write NPI# Here Physician Comment/ : Change Physician Signature Please Sign/Date Here & Date Requested
--- NOTE | 2025-01-18 13:29 | PT.OPDNX ---
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 Subchondral sclerosis. Osteophyte formation. Subchondral cystic change even. No acute fractures or avulsions. No signs of AVN. For comparison, contralateral right hip shows VICTORIANO implants in appropriate, stable position. No evidence of loosening or failure. Referring MD Dr. Nash Subjective Subjective Patient is a 74 year old female who presents to physical therapy with signs and symptoms consistent with left hip abductor tendonitis. She states that it took two weeks for her bruising to heal from her fall. She reports that she has had migraines that worse since the fall. She reports that overall her hip has been good. Pain Comments Today: 1/10 on a 0-10 pain scale with 10 = extreme pain Precautions Weight Bearing Full Weight Bearing Status Objective Other/Pertinent KNEE ROM Objective Grossly tested WNL B HIP ROM Flexion: R 90 L 90 Internal Rotation: R 20 L 5 with pain External Rotation: R 35 L 20 with pain Abduction: R 30 L 25 LLE MMT: Hip flexion: R 4/5 L 4/5 Hip abduction: R 4/5 L 4/5 Hip extension: R 4/5 L 4/5 Knee flexion: R 4+/5 L 4+/5 Knee extension: R 4+/5 L 4+/5 SPECIAL TEST -Sanders Compression: pos on L -Hip quadrant test: neg B -JW: neg B -FADIR neg B -SCOUR: neg B -Trochanteric Bursitis Test: Pos on L -Straight Leg Test: Neg B JOINT MOBILITY/PALPATION Mild tenderness to greater troch, severe tenderness to hip abductor insertion Functional Test 54/80 Performed & Score A score increase of 6 points shows a significant improvement in lower extremity function. Patient Instructed Yes in Risks/Benefits Therapeutic Exercise Therapeutic Exercise 25 Minutes (minutes) Therapeutic Exercise TX: : To Restore Added sit to stand taps Functional Status trialed one leg bridge x 5 B YTB to standing abduction and clamshells - sent home YTB Access Code: [email or web address] URL: [email or web address]://[employer]/ Date: 09/27/2024 Prepared by: Sariah Martinez Exercises - Supine Lower Trunk Rotation - 1 x daily - 7 x weekly - 3 sets - 10 reps - Supine Figure 4 Piriformis Stretch - 1 x daily - 7 x weekly - 3 sets - 10 reps - Seated Piriformis Stretch - 1 x daily - 7 x weekly - 3 sets - 10 reps - Seated Hamstring Stretch - 1 x daily - 7 x weekly - 3 sets - 10 reps - Supine ITB Stretch - 1 x daily - 7 x weekly - 3 sets - 10 reps - standing alternative worked better bridge foam roller/rolling pin hip adductor stretch clamshell side abduction - switched to standing abduction Access Code: [email or web address] URL: [email or web address]/ Date: 01/18/2025 Prepared by: Sariah Martinez Exercises - Sit to Stand - 1 x daily - 7 x weekly - 3 sets - 10 reps - Sit to Stand with Arms Crossed - 1 x daily - 7 x weekly - 3 sets - 10 reps Treatment Minutes Timed Code Treatment 25 Minutes Total Treatment Time 25 Billing Units Therapeutic Exercise 2 Units Assessment/Impression Assessment/ Pt is a 74 year old female who presents with concerns Impression of left hip abductor tendonitis. Agnieszka has healed up from her fall, although her migraines have been worse. Hip pain is significantly better. Removed ITB stretching from home program and added sit to stand taps. Reviewed home program and answered all questions on how often to perform after PT. She will call as needed. D/C plan and criteria is for pt to achieve the goals as listed below or until max rehab potential is met. Primary Functional standing Limitations walking exercising ADLS Plan of Care Physical Therapy Within 10-12 weeks: Goals 1.Pt will demonstrate independence in performance of home exercise program with the use of video and/or handouts in order to optimize functional mobility and reduce risk for re-injury. 2.Pt will demonstrate consistent HEP compliance to ensure progress in reaching established goals during course of care. 3.Patient will be able to do yard work for 45 minutes without pain. 4.Patient will report pain levels <2/10 with all activities in order to improve functional mobility at home, work and during functional leisure activities. 5.Patient is able to sleep without waking more than one time due to pain in a 6-8 hour time frame. 6.Patient will be able to walk up to one mile without pain. 7.Patient will be able to bend and lift household items from the floor to shoulder height to perform ADLs without pain. 8.Pt will be able to ascend/descend 1 flight of stairs in order to perform ADLs pain free. 9.Pt will exhibit 5 pt improvement in Lower Extremity Functional Test to demonstrate functional improvement and progress towards goals Daily Plan of Care Continue per POC Recertification Information Initial 09/27/24 Certification Date Recertification 01/18/25 Start Date Recertification Due 12/25/24 Date Reasons to Continue Patient returns to PT after almost a month to go over Skilled Therapy exercise program. Progressed exercises today and educated on how often to preform and plan to continue on her own at home. She did miss a few weeks of PT from having covid and fall. She has progressed nicely with PT and is compliant with her home exercise program . Recertification for one additional appointment. Rehabilitation Good Potential Continued Plan of Ther ex Care and Ther act Interventions Neuro re-ed Provider Signature POC & Medical Necessity Shows Agreement With Physician Comment/ Comment or Changes Change Physician NPI Number #
== END 2025-02-26 16:37 | disposition home or self-care (01) ==
PROVIDERS: PCP Internal Medicine; Visit Provider Orthopaedic Surgery Sports Medicine
DX: M76.892 Other specified enthesopathies of left lower limb, excluding foot (principal); M16.12 Unilateral primary osteoarthritis, left hip; Z51.89 Encounter for other specified aftercare
CPT/HCPCS: 97110; 97140; 97161

== ENCOUNTER 2025-01-30 08:07 | Outpatient (CLI) | payer MEDICARE, SELFPAY ==
[2025-01-30] MEDS: REGADENOSON 0.4 MG/5 ML SYRINGE IVP (10:24)
[2025-01-30 11:15] VITALS: BP 142/82; PULSE 80; RESP 16; O2SAT 96
--- NOTE | 2025-01-30 15:29 | W.PM.STED ---
Stress Test Note Date Date of test: 01/30/25 Providers Primary care provider: Hanane Dueñas Stress test physician: Griffin Wilson Stress Test Note Stress test ordered: Chanelle Indication for test: Chest pain Stress test medicine: Chanelle Results discussion: Patient is seen and assessed, I discussed with her her the indications for the test, she accepted this in the risk and benefits the injection. Pretest EKG shows incomplete right bundle-branch block, sinus rhythm, with occasional PVCs. She walked, with no complications on the treadmill, she was a little dizzy afterwards. I did help her off the treadmill. She did not develop any chest pain, or significant shortness of breath or any other anginal equivalent symptoms. Unfortunately we have not been able to retrieve a tracing from the computer. I fear that this may be lost. If it is not I will dictate an addendum. Impression: Negative subjective Lexiscan, objective electrographic evidence not available to dictate on at this time. Follow up suggested: Await nuclear images these will be read by nuclear Medicine, clinical correlation with these will be needed. Patient did well recovered normally, left this testing facility in good condition, were no complications.
--- NOTE | 2025-01-30 16:08 | W.PM.STED ---
Stress Test Note Date Date of test: 01/30/25 Providers Primary care provider: Hanane Dueñas Stress test physician: Griffin Wilson Stress Test Note Stress test ordered: Lexiscan Results discussion: Addendum to previous dictation we were able to find the tracings, pretest EKG shows normal sinus rhythm with incomplete bundle branch block morphology ventricular rate 61 BP 1 30-168. No acute ST wave changes are noted. She proceeded through 5 minutes of Lexiscan, maximum heart rate was 82. Maximum blood pressure was 158/82 review of the tracing shows no evidence of ST wave changes suggestive of ischemia, there were no dysrhythmias. Impression: Negative electrographic portion of Lexiscan, subjectively negative Follow up suggested: Await nuclear medicine, and correlation with this will be needed. Patient left this testing facility in good condition.
== END 2025-01-30 08:08 | disposition home or self-care (01) ==
LOC: STRESS 08:09
PROVIDERS: PCP Internal Medicine; Visit Provider Internal Medicine
DX: R07.9 Chest pain, unspecified (principal); R06.02 Shortness of breath; Z51.81 Encounter for therapeutic drug level monitoring
CPT/HCPCS: 78452; 93016; 93325; 93351; A9500; J2785